=== PATIENT | female | born 1945 | race Caucasian/White ===

== ENCOUNTER → 2017-12-14 | Day surgery (SDC) | payer OTHER ==
[~2017-12-14] MED LIST: DICY10CA PO; DILTIAZEM ER240 M1 PO; DIOVAN HCT 161 UDTA1 PO; OMEPRAZOLE40 MG PO; SYNTHROID100 MCG PO
== END | disposition home or self-care (01) ==
LOC: ADM 12-08 14:30 → AMB-ENDOS 07:53
DX: K63.5 Polyp of colon (principal); I11.9 Hypertensive heart disease without heart failure; D12.4 Benign neoplasm of descending colon; D17.79 Benign lipomatous neoplasm of other sites

== ENCOUNTER 2019-06-27 14:08 | Emergency (ER) | payer OTHER ==
[~2019-06-27] VITALS: Ht 154.9 cm; Wt 68.0 kg
[2019-06-27] MEDS ORDERED: ZESTORETIC 20-1 EAC1 (15:05)
== END 2019-06-27 19:43 | disposition home or self-care (01) ==
LOC: ER
DX: K58.8 Other irritable bowel syndrome (principal)

== ENCOUNTER 2020-07-21 15:34 | Emergency (ER) | payer OTHER ==
[~2020-07-21] VITALS: Ht 154.9 cm; Wt 68.0 kg
[~2020-07-21 15:34] MED LIST changes: +ZESTORETIC 20-1 EAC1
== END 2020-07-21 22:50 | disposition home or self-care (01) ==
LOC: ER 15:34
DX: K57.30 Diverticulosis of large intestine without perforation or abscess without bleeding (principal); E87.6 Hypokalemia; R10.84 Generalized abdominal pain; Z03.818 Encounter for observation for suspected exposure to other biological agents ruled out

== ENCOUNTER 2020-09-14 09:00 | Outpatient (CLI) | payer OTHER | END 2020-09-14 09:12 | disposition home or self-care (01) | LOC: RAD 09:00 | PROVIDERS: ATTEND Surgery | DX: D17.5 Benign lipomatous neoplasm of intra-abdominal organs (principal); Z86.010 Personal history of colon polyps; K55.1 Chronic vascular disorders of intestine; K31.84 Gastroparesis; K58.1 Irritable bowel syndrome with constipation ==

== ENCOUNTER 2020-09-16 10:59 | Emergency (ER) | payer OTHER ==
[~2020-09-16] VITALS: Ht 154.9 cm; Wt 68.0 kg
[2020-09-16] MEDS ORDERED: VISTARIL25 MG PO (16:42)
== END 2020-09-16 16:49 | disposition home or self-care (01) ==
LOC: ER 10:59 → CPU-OBS 12:18 → ER 12:18
DX: I16.1 Hypertensive emergency (principal); I10 Essential (primary) hypertension

== ENCOUNTER → 2023-12-07 | Emergency (ER) | payer OTHER ==
[~2023-12-07] VITALS: Ht 154.9 cm; Wt 64.0 kg
[~2023-12-07] MED LIST changes: +0.9 % SODIUM CHLORIDE 1,000 ML IV SCH; +BARIUM SULFATE 450 ML ORAL.SUSP PO ONE; +FAMOTIDINE/PF 20 MG in 0.9 % SODIUM CHLORIDE 8 ML IV PUSH STA; +FAMOTIDINE/PF 20 MG/2 ML VIAL ONE; +IRBESARTAN300 MG PO; +KETOROLAC TROMETHAMINE 30 MG VIAL IV ONE; +KETOROLAC TROMETHAMINE 30 MG VIAL ONE; +LACTULOSE 10 G/15 ML ML PO ONE; +LACTULOSE 20 G/30 ML BLIST.PACK ONE; +MAGNESIUM HYDROXIDE 30 ML BLIST.PACK PO ONE; +MAGNESIUM HYDROXIDE 400 MG/5 ML ML PO ONE; +MINERAL OIL 30 ML BLIST.PACK ONE; +MINERAL OIL 30 ML BLIST.PACK PO ONE; +MIRALAX510 GM PO; +NIFEDIPINE20 MG PO; +ONDANSETRON HCL 2 MG/ML VIAL IV ONE; +ONDANSETRON HCL 2 MG/ML VIAL ONE; +VISTARIL25 MG PO
[2023-12-07 13:40] LABS: HEMATOCRIT 40.8 % (36.0-45.00); HEMOGLOBIN 13.6 g/dL (12.0-15.00); MEAN CELL VOLUME 90.6 fL (80.00-100.00); MEAN CORPUSCULAR HEMOGLOBIN 30.2 pg (27.00-32.0); MEAN CORPUSCULAR HGB CONC 33.3 g/dl (32.0-36.0); PLATELET COUNT 172 K/uL (150-450); RED CELL DISTRIBUTION WIDTH 13.7 % (11.5-14.5)
[2023-12-07 14:26] LABS: ALBUMIN 3.8 gm/dL (3.4-5.0); BILIRUBIN TOTAL 0.95 mg/dL (0.3-1.2); CALCIUM 9.3 mg/dL (8.5-10.1); CREATININE SERUM 1.21 mg/dL (0.55-1.02); GFR 42.92; GLOBULINA 4.3 G/DL (2.4-3.5); POTASSIUM 3.21 mEq/L (3.5-5.1); TOTAL PROTEIN 8.1 gm/dL (6.4-8.2)
== END | disposition home or self-care (01) ==
LOC: ER 11:31
PROVIDERS: General Practice
DX: K59.00 Constipation, unspecified (principal); R10.9 Unspecified abdominal pain; I10 Essential (primary) hypertension; Z88.1 Allergy status to other antibiotic agents
CPT/HCPCS: 36415; 74177; 96365; 99284; J7030; Q9965